=== PATIENT | female | born 1985 | race Hispanic/Latino ===

== ENCOUNTER 2019-09-07 06:57 | Outpatient (NON) | payer OTHER, SELFPAY ==
[2019-09-07 18:04] LABS: SARS-CoV-2 RNA PCR Negative
== END 2020-07-10 10:13 | disposition home or self-care (01) ==
PROVIDERS: Visit Provider Emergency Medicine
DX: R09.89 Other specified symptoms and signs involving the circulatory and respiratory systems (principal); Z20.828 Contact with and (suspected) exposure to other viral communicable diseases
CPT/HCPCS: 87635; C9803; U0003

== ENCOUNTER 2020-10-28 15:33 | Outpatient (CLI) | payer BC, SELFPAY ==
--- NOTE | ~2020-10-28 | CT_ITS ---
EXAMINATION: CT abdomen pelvis w con DATE: 10/28/2020 15:59 INDICATION: Status post, atonic with swelling and firmness along the incision. TECHNIQUE: Computed tomography (CT) of the abdomen and pelvis was performed with 100 mL Omnipaque-350 intravenous contrast. Automated exposure control and iterative reconstruction technique were employe d. The dose-length product was 346.57 mGy-cm. COMPARISON: None FINDINGS: Lung bases are clear. Heart size is normal. No pericardial or pleural effusion. Bilateral breast impl ants. Small region of focal hepatic steatosis at the ligamentum teres. Gallbladder, spleen, pancreas, bilateral adrenal glands and kidneys are normal. Bladder is normal. Heterogeneous myometrial enhance ment at the anteverted uterus with suggestion of the couple small hypoenhancing uterine fibroids, the larger at the anterior fundus measuring 1.8 cm in maximal diameter. Bilateral adnexa are unremarkabl e. Minimal likely physiologic free fluid in the cul-de-sac. No pathologically enlarged abdominal or p elvic lymphadenopathy. Postoperative change of prior abdominoplasty. There is likely postoperative st randing and edema throughout the anterior abdominal wall fat with additional dependent subcutaneous e dawit posterior to the lumbar spine. There are 3 small loculated fluid collections within the anterior abdominal wall subcutaneous fat, the smallest measuring 4.1 x 4.4 x 1.0 cm positioned slightly cepha lad and to the right of the umbilicus additional larger collection more caudally overlying the right and left anterior iliac spines measuring 6.5 x 3.9 x 1.1 cm on the right and 7.0 x 3.3 x 0.9 cm on th e left. There is relatively minimal stranding immediately abutting the fluid collections and would fa vor postoperative hematoma/seromas although differential would include abscess in the appropriate cli nical setting. Bone island at the left femoral head. IMPRESSION: 1. Postoperative changes consistent with recent abdominoplasty with three small loculated subcutaneou s fluid collections in the anterior abdominal wall fat most likely postoperative hematoma/seromas alt marlene differential would include abscess in the appropriate clinical setting. Reviewed, dictated and finalized at location A. IMPRESSION: 1. Postoperative changes consistent with recent abdominoplasty with three small loculated subcutaneous fluid collections in the anterior abdominal wall fat mo st likely postoperative hematoma/seromas although differential would include ab scess in the appropriate clinical setting.
== END 2020-10-28 15:34 | disposition home or self-care (01) ==
PROVIDERS: PCP Emergency Medicine; Visit Provider Emergency Medicine
DX: R10.9 Unspecified abdominal pain (principal)
CPT/HCPCS: 74177; Q9967